=== PATIENT | male | born 1980 | race Caucasian/White ===

== ENCOUNTER 2021-01-24 10:22 | Inpatient (IN) | payer MEDICAID, SELFPAY ==
[2021-01-24] VITALS (19 sets, daily range): BP systolic 101–155; BP diastolic 57–107; PULSE 81–103; RESP 12–20; TEMP 36.1–37.2; O2SAT 94–100
--- NOTE | ~2021-01-24 | CT_ITS ---
EXAMINATION: CT pelvis w con DATE: 01/24/2021 12:36 INDICATION: Abscess with swelling and erythema and open wound at the groin. TECHNIQUE: Computed tomography (CT) of the pelvis was performed with 100 mL Omnipaque-350 intravenous contrast. Automated exposure control and iterative reconstruction technique were employed. The dose -length product was 919.39 mGy-cm. COMPARISON: None FINDINGS: Skin thickening and prominent subcutaneous edema in the bilateral inguinal regions and inte rvening lower anterior pelvic wall extending across the base of the penis consistent with cellulitis. No associated soft tissue gas or discrete fluid collection to suggest abscess. 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 Multiple surgical clips about the tip the cecum likely related to prior ap pendectomy. There are a few diverticula along the mid colon without adjacent inflammatory change to s uggest diverticulitis. Remainder of the visualized bowels are unremarkable. Bladder and prostate are unremarkable. No free intraperitoneal gas or fluid in the pelvis or visualized lower abdomen. Very mi ld lower lumbar spondylosis. IMPRESSION: 1. Cellulitis without soft tissue gas or abscess extending from the left right inguinal regions acros s the anterior lower pelvic wall. Reviewed, dictated and finalized at location A. IMPRESSION: 1. Cellulitis without soft tissue gas or abscess extending from the left right inguinal regions across the anterior lower pelvic wall.
--- NOTE | 2021-01-24 11:11 | ED.GENADULT ---
HPI - General Adult General Chief complaint: Skin/Abscess/Foreign Body Stated complaint: abd abscess from [facility] Time Seen by Provider: 01/24/21 10:41 Source: patient Mode of arrival: ambulatory Limitations: no limitations History of Present Illness HPI narrative: Patient is a 40-year-old male who presents to emergency department for evaluation of infection in the suprapubic region patient had shaved this area several days ago began to have irritation developed redness and swelling went to urgent care was placed on antibiotics return today with worsening condition was referred to the emergency department. On arrival patient with large confluent tender swollen fluctuant area across the suprapubic region with 2 openings 1 on each side of the groin. Patient notes that there is purulent drainage from these lesions. Patient is now developing redness around into the hips and abdomen. Patient notes moderate to severe pain worse with activity and movement. Patient denies fever vomiting or immunocompromise. Patient notes history of prior staph infections Related Data Home Medications Medication Instructions Recorded Confirmed No Home Medications 01/24/21 01/24/21 Allergies Allergy/AdvReac Type Severity Reaction Status Date / Time vancomycin Allergy Unknown Itching Verified 01/24/21 10:51 MYCINS Allergy Unknown Itching Uncoded 01/24/21 10:51 Review of Systems Review of Systems: All systems reviewed & are unremarkable except as noted in HPI and below PMFSH Social History Social History (Updated 01/24/21 @ 11:13 by Edmond Carlos PA-C) Smoking status: Never smoker Gender identity (if verbalized by the patient): Male Exam Narrative: Exam Narrative: GENERAL: Well-appearing, well-nourished, and in no acute distress. HEAD: Normocephalic, atraumatic. EYES: PERRLA and EOMI. ENT: Nares clear, no rhinorrhea or epistaxis. Mucous membranes moist. CHEST: Clear to auscultation. No respiratory distress. No wheezes rales or rhonchi HEART: Regular rate and rhythm. No murmur heard. Normal peripheral pulses. ABDOMEN: Soft, nontender, nondistended, EXTREMITIES: Normal range of motion. No edema. SKIN: Warm, dry, no rash. Patient with red tender swollen fluctuant lesion across the suprapubic area with cellulitis extending into the lower abdomen and thigh bilaterallys. There are 2 draining lesion one on the side of the suprapubic lesion draining purulence raising concern for a large confluent abscess or separate abscesses NEURO: No focal deficits. Alert and oriented x3. Cranial nerves II through XII grossly intact PSYCH: Normal mood and affect. Course Course Emergency Course: Patient presented with cellulitis abscess surgeon saw the patient in the emergency department and will take him to the operative suite for I&D patient was hydrated and given antibiotics in the emergency department Consultations Consultation #1: Discussed case with Dr. Valencia the surgeon who will see the patient in the emergency department Date: 01/24/21 Vital Signs Vital signs: Vital Signs Temperature 97.3 F L 01/24/21 10:27 Pulse Rate 103 H 01/24/21 10:27 Respiratory Rate 19 01/24/21 10:27 Blood Pressure 142/91 H 01/24/21 10:27 Pulse Oximetry 100 01/24/21 10:27 Temperature 98.1 F 01/24/21 10:40 Pulse Rate 98 01/24/21 10:40 Respiratory Rate 18 01/24/21 10:40 Blood Pressure 142/91 H 01/24/21 10:27 Pulse Oximetry 100 01/24/21 10:40 Medical Decision Making MDM Narrative Medical decision making narrative: Patient hemodynamically stable in the room in no distress IV antibiotics initiated fluids initiated patient will go to surgery at this time for I&D of his abscess cellulitis Vital Signs Vital Signs: Vital Signs Temperature 97.3 F L 01/24/21 10:27 Pulse Rate 103 H 01/24/21 10:27 Respiratory Rate 19 01/24/21 10:27 Blood Pressure 142/91 H 01/24/21 10:27 Pulse Oximetry 100 01/24/21 10:27 Temperature 98.1 F
[2021-01-24] MEDS: MORPHINE SULFATE (*CRX) 4 MG/ML INJ IV PUSH (11:36)
[2021-01-24] MEDS: SODIUM CHLORIDE 0.9% IV 3,100 ML/1,000 ML BAG 999 ML IV CONT (11:39)
[2021-01-24 11:59] LABS: Hematocrit 43.6 % (42.0-52.0); Hemoglobin 14.9 g/dL (14.0-18.0); Mean Corpuscular HGB Conc 34.2 g/dl (32-36); Mean Corpuscular Hemoglobin 31.7 pg (26-34); Mean Corpuscular Volume 92.8 fl (80-100); Mean Platelet Volume 8.8 fl (7.4-10.4); Platelet Count Result 283 k/mm3 (150-375); Red Cell Distribution Width 11.7 % (11.5-14.5); White Blood Count 17.1 K/mm3 (4.5-10.0)
[2021-01-24 12:07] LABS: Lymphocytes Absolute Manual 0.85 K/mm3 (1.1-4.5); Monocytes Absolute Manual 2.05 K/mm3 (0.1-0.90); Monocytes Percent Manual 12 % (3-9); Neutrophils Percent Manual 83 % (46-73); Platelet Estimate Adequate (Adequate); Total Cells Counted 100
[2021-01-24 12:08] LABS: Prothrombin Time 13.3 Seconds (11.1-14.7)
[2021-01-24 12:09] LABS: Partial Thromboplastin Time 33.3 SECONDS (22.3-36.8)
[2021-01-24 12:10] LABS: Lactic Acid Reflex 1.3 mmol/L (0.7-2.1)
[2021-01-24] MEDS: CLINDAMYCIN 900 MG/D5W 50 ML 900 MG/50 ML PIGGYBACK 50 MG IVPB (12:11)
[2021-01-24 12:14] LABS: Alanine Aminotransferase 21 U/L (4-50); Albumin Level 4.6 g/dL (3.5-5.1); Alkaline Phosphatase 88 U/L (38-126); Anion Gap 6 mmol/L (8-16); Aspartate Amino Transferase 27 U/L (17-59); Bilirubin,Total 0.7 mg/dL (0.2-1.3); Blood Urea Nitrogen 13 mg/dL (9-20); Calcium 9.4 mg/dL (8.4-10.2); Carbon Dioxide 30 mmol/L (22-30); Chloride 101 mmol/L (98-107); Estimated CRCL calculation 118 ml/min; Estimated Glomerular Filt Rate > 60; Glucose 101 mg/dL (75-110); Potassium 4.1 mmol/L (3.4-5.0); Sodium 137 mmol/L (137-145)
--- NOTE | 2021-01-24 12:20 | PM.IMHP ---
H&P: HPI History of Present Illness Date/Time: 01/24/21 12:20 Pt is a 40 y/o M presenting c worsening pubic pain, swelling, redness, drainage over last wk. Pt reports he shaved the area last Sunday and area has become progressively worse. Pt seen over the weekend in urgent care and started on abx. Pt reports abx have not seemed to help and now there are 2 areas that have opened up and are draining purulent fluid. Pt reports low grade fevers and chills at home. Pt also reports decreased appetitie. Pt reports he has h/o staff infection in his lower extremity. Chief Complaint: pubic abscess, cellulitis Review of Systems Constitutional: Constitutional: Denies anorexia, Reports body ache(s), Reports chills, Reports fatigue, Reports fever(s), Denies headache(s), Reports lethargy, Reports malaise, Denies night sweats, Reports poor appetite, Reports weakness, Denies weight gain and Denies weight loss Eyes: Eyes: Reports no additional eye complaints ENT: Reports system reviewed and no additional complaints, except as documented Cardiovascular: Cardiovascular: Reports no additional cardiovascular complaints Respiratory: Respiratory: Reports no additional respiratory complaints Gastrointestinal: Gastrointestinal: Reports no additional gastrointestinal complaints Genitourinary: Genitourinary: Reports as per HPI and Reports scrotal swelling Musculoskeletal: Musculoskeletal: Reports no additional musculoskeletal complaints Integumentary/Breasts: Skin/Breast: Reports system reviewed and no additional complaints, except as docu and Reports as per HPI Neurologic: Reports system reviewed and no additional complaints, except as documented Psychiatric: Psychiatric: Reports no additional psychiatric complaints Endocrine: Endocrine: Reports no additional endocrine complaints Hematologic/Lymphatic: Hematologic/Lymphatic: Reports no additional hematologic/lymphatic complaints Allergic/Immunologic: Allergic/Immunologic: Reports no additional allergic/immunologic complaints [facility] Social History Social History (Updated 01/24/21 @ 11:13 by Edmond Carlos PA-C) Smoking status: Never smoker Gender identity (if verbalized by the patient): Male Comments PMH - staph infection of lower extremity PSxH - RIH repair as child FH - pt denies any h/o skin cancers, skin disorders Meds Home Medications and Allergies Home Medications Medication Instructions Recorded Confirmed Type No Home Medications 01/24/21 01/24/21 History Allergies Allergy/AdvReac Type Severity Reaction Status Date / Time vancomycin Allergy Unknown Itching Verified 01/24/21 10:51 MYCINS Allergy Unknown Itching Uncoded 01/24/21 10:51 Vital Signs Vital Signs - 24 hr 01/24/21 10:27 01/24/21 10:40 Temperature 36.3 C L 36.7 C Pulse Rate 103 H 98 Respiratory Rate 19 18 Blood Pressure 142/91 H Pulse Oximetry 100 100 Exam Const: General: cooperative, healthy appearing, well developed, alert, awake, Physically active and acute distress mild Nutritional Appearance: average body habitus Orientation/consciousness: patient oriented x3 Limitations: no limitations HENMT: Head: normal to inspection, normocephalic and atraumatic Ears: hearing grossly normal bilaterally General nose exam: Normal external nose present Face and sinus: normal facial exam Mouth: Yes Normal oral and palatal mucosa present and Yes moist mucous membranes Throat: posterior oropharynx normal Eyes: General: appearance normal, both eyes and all related structures Pupils: Equal, round and reactive pupils present EOM: EOMs intact bilaterally Neck: Neck: normal visual inspection, full ROM and no lymphadenopathy Chest: Chest palpation & inspection: normal inspection of the chest Resp: Effort & Inspection: normal respiratory effort and able to speak in complete sentences Auscultation: clear to auscultation bilaterally Cardio: Jugular venous distension: no JVD Rate: regular rate
[2021-01-24 12:25] LABS: CRP 15.3 mg/dL (<1.0)
--- NOTE | 2021-01-24 13:26 | WPDANESEPPF ---
Anes - Initial Pre Proc Eval Procedure: Operation Date: 01/24/21 14:00 Proposed Procedures p Complex Incision And Drainage Of Pubic Abscess - Elli Valencia MD Date/Time: 01/24/21 13:26 Surgeon: Elli Valencia MD Pre Op Diagnosis: abd abscess from [facility] Patient Data Age: 40 Gender: M Height: 6 ft 4 in Weight: 102 kg Last Vital Signs Temp 37.2 C 01/24/21 13:01 Pulse 103 H 01/24/21 13:01 Resp 16 01/24/21 13:01 BP 131/81 01/24/21 13:01 Pulse Ox 98 01/24/21 13:01 Allergies Allergy/AdvReac Type Severity Reaction Status Date / Time vancomycin Allergy Unknown Itching Verified 01/24/21 10:51 MYCINS Allergy Unknown Itching Uncoded 01/24/21 10:51 Home Medications Medication Instructions Recorded Confirmed Type No Home Medications 01/24/21 01/24/21 History Laboratory Tests 01/24/21 01/24/21 01/24/21 11:43 11:43 11:43 WBC 17.1 K/mm3 H K/mm3 (4.5-10.0) RBC 4.70 M/mm3 M/mm3 (4.6-6.20) Hgb 14.9 g/dL g/dL (14.0-18.0) Hct 43.6 % % (42.0-52.0) MCV 92.8 fl fl (80-100) MCH 31.7 pg pg (26-34) MCHC 34.2 g/dl g/dl (32-36) RDW 11.7 % % (11.5-14.5) Plt Count 283 k/mm3 k/mm3 (150-375) MPV 8.8 fl fl (7.4-10.4) Immature Gran % (Auto) Not Reportable Neut % (Auto) Not Reportable Lymph % (Auto) Not Reportable [place] % (Auto) Not Reportable Eos % (Auto) Not Reportable Baso % (Auto) Not Reportable Lymph # (Auto) Not Reportable [place] # (Auto) Not Reportable Eos # (Auto) Not Reportable Baso # (Auto) Not Reportable Abs Immat Gran (auto) Not Reportable Absolute Neuts (auto) Not Reportable Absolute Nucleated RBC Not Reportable Total Counted 100 Neutrophils % (Manual) 83 % H % (46-73) Lymphocytes % (Manual) 5.0 % L % (18-44) Monocytes % (Manual) 12 % H % (3-9) Nucleated RBC % Not Reportable Abs Lymphs (Manual) 0.85 K/mm3 L K/mm3 (1.1-4.5) Abs Monocytes (Manual) 2.05 K/mm3 H K/mm3 (0.1-0.90) Platelet Estimate Adequate (Adequate) PT 13.3 Seconds Seconds (11.1-14.7) INR 1.0 APTT 33.3 SECONDS SECONDS (22.3-36.8) Sodium 137 mmol/L mmol/L (137-145) Potassium 4.1 mmol/L mmol/L (3.4-5.0) Chloride 101 mmol/L mmol/L (98-107) Carbon Dioxide 30 mmol/L mmol/L (22-30) Anion Gap 6 mmol/L L mmol/L (8-16) BUN 13 mg/dL mg/dL (9-20) Creatinine 0.90 mg/dL mg/dL (0.7-1.3) Estim Creat Clear Calc 118 ml/min ml/min Estimated GFR > 60 (59 - ) Glucose 101 mg/dL mg/dL (75-110) Lactic Acid Calcium 9.4 mg/dL mg/dL (8.4-10.2) Total Bilirubin 0.7 mg/dL mg/dL (0.2-1.3) AST 27 U/L U/L (17-59) ALT 21 U/L U/L (4-50) Alkaline Phosphatase 88 U/L U/L (38-126) C-Reactive Protein 15.3 mg/dL H mg/dL (<1.0) Total Protein 8.0 g/dL g/dL (6.3-8.2) Albumin 4.6 g/dL g/dL (3.5-5.1) 01/24/21 11:43 WBC RBC Hgb Hct MCV MCH MCHC RDW Plt Count MPV Immature Gran % (Auto) Neut % (Auto) Lymph % (Auto) [place] % (Auto) Eos % (Auto) Baso % (Auto) Lymph # (Auto) [place] # (Auto) Eos # (Auto) Baso # (Auto) Abs Immat Gran (auto) Absolute Neuts (auto) Absolute Nucleated RBC Total Counted Neutrophils % (Manual) Lymphocytes % (Manual) Monocytes % (Manual) Nucleated RBC % Abs Lymphs (Manual) Abs Monocytes (Manual) Platelet Estimate PT INR
[2021-01-24] MEDS: LACTATED RINGERS 1,000 ML 30 ML IV CONT (13:38)
--- NOTE | 2021-01-24 13:40 | WPDHPUPDATE1 ---
History and Physical Update Update Date/Time: 01/24/21 13:40 History and Physical has been reviewed, including an updated exam of the patient. There are NO changes in the patient's condition. Risks, benefits, and alternatives have been discussed and questions answered. Patient agrees to proceed with procedure.
[2021-01-24] MEDS: BUPIVACAINE/EPINEPHRINE 0.5% 30 ML VIAL INFILTRATE (14:16)
--- NOTE | 2021-01-24 14:20 | P.OP_ITS ---
Procedure Note - Detailed Date of procedure: 01/24/21 Pre-op diagnosis: abd abscess from [facility] pubic abscess measuring approximately 30 x 12 cm Post-op diagnosis: same Procedure performed: complex incision and drainage pubic abscess Description of procedure: The patient was taken the operating room and placed in the supine position. After adequate induction general anesthesia, the patient was prepped and draped in the normal sterile fashion. A time-out was then done to verify the patient's identity, as well as the procedure being performed. I began by localizing the most fluctuant areas of this abscess. There was 2 openings that were draining purulence fluid. I then opened up both these areas. This was noted to extend through the dermis into the subcutaneous tissue. There was noted to be some fat necrosis as well as a moderate amount of purulence. I was able to bluntly dissect in open these cavities completely up. These were noted to connect. The size of the cavity was noted to be approxi mately 30 x 12 cm. The depth was into the subcutaneous tissue at approximately 4 cm. Once I had this completely open and drained, I copiously irrigated out the cavities. I then packed both areas with 1 in iodoform to keep this area open and draining. Sterile dressing was then placed. The patient tolerated the procedure well and was extubated in the operating room postoperatively. He will be sent to the recovery room in stable condition. Anesthesia: GLMA Surgeon: Elli Valencia MD Estimated blood loss (mL): 10 Drains: No Packing: Yes Pathology: none sent Complications: No immediate complications Condition: stable Disposition: PACU Findings: 30 x 12 cm pubic abscess
[2021-01-24] MEDS: fentaNYL CITRATE INJ (*CRX) 100 MCG/2 ML VIAL 25 MCG IV PUSH ×8 (14:47→15:08)
--- NOTE | 2021-01-24 15:35 | ADMGEN ---
This patient, Russ Llamas, was admitted to [facility] Surg Room 302-01. Patient/family oriented to hospital policies and general routines including ID bracelet, bed and alarms, visiting hours, pain management, procedures, bathroom and other care routines, personal items, smoking policy, room service/diet, and visiting hours. Information on how to activate the Rapid Response Team has been discussed. Patient/Family are encouraged to report perceived risks to care and to ask questions if they do not understand what they are told or what they should do.
[2021-01-24] MEDS: HYDROcodone/acetaminophen (*CRX) 5-325 MG TABLET 1 TAB PO ×2 (15:54→19:49)
[2021-01-24] MEDS: SODIUM CHLORIDE 0.9% IV 1,000 ML 100 ML IV CONT (15:55)
[2021-01-24] MEDS: DOCUSATE SODIUM 100 MG CAPSULE PO (17:06)
[2021-01-25] VITALS: BP 138/76; PULSE 97; RESP 16; TEMP 36.7; O2SAT 97
[2021-01-25] MEDS: SODIUM CHLORIDE 0.9% IV 1,000 ML 100 ML IV CONT (00:46)
[2021-01-25] MEDS: HYDROcodone/acetaminophen (*CRX) 5-325 MG TABLET 1 TAB PO ×2 (02:04→08:20)
[2021-01-25 04:00] VITALS: BP 125/66; PULSE 92; RESP 16; TEMP 36.6; O2SAT 96
[2021-01-25 06:11] LABS: Basophils Percent Auto 0.2 % (0.2-1.2); Hematocrit 35.3 % (42.0-52.0); Hemoglobin 11.8 g/dL (14.0-18.0); Immature Granulocyte Absolute 0.12 K/mm3 (0.00-0.031); Immature Granulocyte Percent A 0.7 % (0-0.5); Lymphocytes Absolute Auto 0.84 K/mm3 (0.9-3.2); Lymphocytes Percent Auto 5.2 % (18.3-44.2); Mean Corpuscular HGB Conc 33.4 g/dl (32-36); Mean Corpuscular Hemoglobin 31.1 pg (26-34); Mean Corpuscular Volume 93.1 fl (80-100); Monocytes Absolute Auto 1.3 K/mm3 (0.1-0.6); Monocytes Percent Auto 8.1 % (2.6-8.5); Neutrophils Absolute Auto 13.9 K/mm3 (1.3-6.7); Neutrophils Percent Auto 85.8 % (45.5-73.1); Platelet Count Result 320 k/mm3 (150-375); Red Blood Count 3.79 M/mm3 (4.6-6.20); Red Cell Distribution Width 11.8 % (11.5-14.5); White Blood Count 16.2 K/mm3 (4.5-10.0)
[2021-01-25 06:24] LABS: Anion Gap 8 mmol/L (8-16); Blood Urea Nitrogen 11 mg/dL (9-20); Calcium 8.4 mg/dL (8.4-10.2); Carbon Dioxide 28 mmol/L (22-30); Chloride 103 mmol/L (98-107); Estimated CRCL calculation 118 ml/min; Estimated Glomerular Filt Rate > 60; Glucose 162 mg/dL (75-110); Potassium 4.4 mmol/L (3.4-5.0); Sodium 139 mmol/L (137-145)
[2021-01-25 08:00] VITALS: BP 144/69; PULSE 96; RESP 20; TEMP 36.6; O2SAT 96
[2021-01-25] MEDS: DOCUSATE SODIUM 100 MG CAPSULE PO (08:21)
--- NOTE | 2021-01-25 09:36 | PM.PNGS ---
Progress Note: A&P Assessment and Plan (1) Abscess of skin or subcutaneous tissue: Code(s): L02.91 - Cutaneous abscess, unspecified Status: Acute Assessment and Plan: POD#1 I&D pubic abscess and improving. Pain uncontrolled through the night. Required IV analgesics for dressing change. WBC trending down and he is afebrile. Continue IV abx. Will continue dressing changes daily and as needed with gauze/ABD pad and tape. May discharge later today if pain has improved, otherwise will reassess tomorrow. (2) Cellulitis: Code(s): L03.90 - Cellulitis, unspecified Status: Acute Assessment and Plan: Improving. See plan above. Additional Plan Discussed the plan of care with Dr. Valencia Subjective Subjective Date/Time Seen: 01/25/21 09:36 Post Op day: 1 (I&D complex pubic abscess) Patient reports: still having pain, voiding w/o difficulty and afebrile Interval history: Patient reports having pain throughout the night and not being able to sleep. He has changed the overlying gauze dressing to his pubic abscess this morning, but packing still has not been changed since surgery. No other complaints. Reports swelling has improved. Review of Systems Review of Systems: All systems reviewed & are unremarkable except as noted in HPI and below Exam Const: General: alert and awake Orientation/consciousness: patient oriented x3 Skin: Other: Gauze dressing removed, pubic abscess with two open incisions that are both packed with 1 iodoform gauze. Removed packing, no purulent drainage noted. Induration and erythema improved. Neuro: General: patient oriented x3 Psych: Mental Status: mental status grossly normal Attitude: cooperative Insight: Good insight present (Psych) Judgement: Good judgement present (Psych) Objective Data Vital Signs Vital Signs: Vital Signs - 24 hr 01/24/21 10:27 01/24/21 10:40 01/24/21 10:49 Temperature 97.3 F L 98.1 F Pulse Rate 103 H 98 Respiratory Rate 19 18 Blood Pressure 142/91 H 153/92 H Pulse Oximetry 100 100 99 01/24/21 11:01 01/24/21 11:34 01/24/21 11:38 Temperature Pulse Rate Respiratory Rate Blood Pressure 150/76 H 123/107 H 141/81 H Pulse Oximetry 100 100 100 01/24/21 11:46 01/24/21 12:01 01/24/21 13:01 Temperature 98.9 F Pulse Rate 103 H Respiratory Rate 16 Blood Pressure 135/77 143/85 H 131/81 Pulse Oximetry 97 94 98 01/24/21 14:18 01/24/21 14:30 01/24/21 14:45 Temperature 96.9 F L Pulse Rate 82 88 87 Respiratory Rate 16 12 20 Blood Pressure 101/63 118/57 L 118/60 Pulse Oximetry 97 100 97 01/24/21 15:00 01/24/21 15:15 01/24/21 15:30 Temperature 97.3 F L Pulse Rate 81 91 94 Respiratory Rate 20 15 16 Blood Pressure 127/78 120/67 146/62 H Pulse Oximetry 99 98 99 01/24/21 15:45 01/24/21 16:00 01/24/21 19:52 Temperature 97.3 F L 97.2 F L Pulse Rate 89 92 92 Respiratory Rate 16 16 16 Blood Pressure 137/77 155/74 H Pulse Oximetry 100 97 97 01/24/21 20:00 01/25/21 00:00 01/25/21 04:00 Temperature 97.5 F L 98.1 F 97.9 F Pulse Rate 91 97 92 Respiratory Rate 16 16 16 Blood Pressure 146/73 H 138/76 125/66 Pulse Oximetry 98 97 96 01/25/21 08:00 Temperature 97.9 F Pulse Rate 96 Respiratory Rate 20 Blood Pressure 144/69 H Pulse Oximetry 96 Intake/Output Intake/Output: Intake & Output 01/22/21 01/23/21 01/24/21 01/25/21 23:59 23:59 23:59 23:59 Intake Total 1610 3290 Balance 1610 3290 Meds/Results Medications: Active Medications Generic Name Dose Route Start Last Admin Trade Name Freq PRN Reason Stop Dose Admin Hydrocodone Bitart/Acetaminophen 1 tab 01/24/21 14:14 01/25/21 08:20 Hydrocodone/Acetaminophen (*Crx) 5-325 Mg Tablet PO 1 tab Q4H PRN Administration Moderate Pain (4-6) Al Hydrox/Mg Hydrox/Simethicone 30 ml 01/24/21 14:14 Mag Hydrox/Al Hydrox/Simeth 30 Ml Udc PO QID PRN Dyspepsia Docusate Sodium 100 mg 01/24/21 17:00 01/25/21 08:21
[2021-01-25] MEDS: MORPHINE SULFATE (*CRX) 4 MG/ML INJ IV PUSH (10:30)
[2021-01-25 12:04] VITALS: BP 147/77; PULSE 103; RESP 20; TEMP 36.3; O2SAT 96
--- NOTE | 2021-01-25 14:30 | P.PNAN_ITS ---
Anes - Prog Note Post-Op Date/Time: 01/25/21 14:30 Cardiovascular status: normal Respiratory status: normal Airway patency: baseline Mental status: baseline Post-Op hydration status: normal Vital Signs: Last Vital Signs Temp 36.3 C L 01/25/21 12:04 Pulse 103 H 01/25/21 12:04 Resp 20 01/25/21 12:04 BP 147/77 H 01/25/21 12:04 Pulse Ox 96 01/25/21 12:04 Pain Score (VAS): 0 I/O: Intake & Output 01/24/21 01/25/21 01/25/21 23:59 07:59 15:59 Intake Total 1510 3100 240 Balance 1510 3100 240 Laboratory Tests 01/25/21 05:25 01/25/21 05:25 01/25/21 01/25/21 05:25 05:25 WBC 16.2 H RBC 3.79 L Hgb 11.8 L D Hct 35.3 L MCV 93.1 MCH 31.1 MCHC 33.4 RDW 11.8 Plt Count 320 MPV 9.0 Immature Gran % (Auto) 0.7 H Neut % (Auto) 85.8 H Lymph % (Auto) 5.2 L [place] % (Auto) 8.1 Eos % (Auto) 0.0 Baso % (Auto) 0.2 Lymph # (Auto) 0.84 L [place] # (Auto) 1.3 H Eos # (Auto) 0.0 Baso # (Auto) 0.0 Abs Immat Gran (auto) 0.12 H Absolute Neuts (auto) 13.9 H Absolute Nucleated RBC 0.0 Nucleated RBC % 0.0 Sodium 139 Potassium 4.4 Chloride 103 Carbon Dioxide 28 Anion Gap 8 BUN 11 Creatinine 0.90 Estim Creat Clear Calc 118 Estimated GFR > 60 Glucose 162 H Calcium 8.4 Microbiology 01/24/21 11:43 Blood Blood Culture - Preliminary 01/24/21 11:44 Blood Blood Culture - Preliminary 01/24/21 11:44 Abscess Anaerobic Culture - Preliminary Post-procedural complaints: none Patient Feedback: Patient satisfied with anesthetic care.
--- NOTE | 2021-01-25 16:34 | PM.DS ---
DS: Admitting Diagnosis Admitting Diagnosis Admitting Diagnosis: Pubic abscess Cellulitis DS: Discharge Diagnosis Discharge Diagnosis (1) Abscess of skin or subcutaneous tissue: Code(s): L02.91 - Cutaneous abscess, unspecified Status: Acute (2) Cellulitis: Code(s): L03.90 - Cellulitis, unspecified Status: Acute DS: Summary Hospital Course Reason for hospitalization: Pt is a 40 y/o M who presented to the ER with complaints of worsening pubic pain, swelling, redness, drainage over a week. Prior to symptoms, he had shaved the pubic area and symptoms worsened after this. He was seen in an urgent care and started on oral antibiotics without improvement, then came to he ER. Evaluation in the ER showed a pubic abscess with two open draining lesions. Our service was contacted and he was admitted in this setting for surgical evaluation. Hospital Course: The patient was taken for an I&D of complex pubic abscess on 01/24/21. The two openings of the pubic abscess were found to connect and the entire area was copiously cleaned out and drained. The wound was then packed with 1' iodoform gauze and the patient was kept overnight on IV antibiotics. Wound cultures were taken in the ER prior to surgery and pending on discharge. The patient evaluated POD#1 and showed significant improvement in overall surrounding cellulitis and induration. Packing was removed and the abscess appeared to be adequately drained with no purulent drainage at the time of exam. He was afebrile and WBC trending down. Dr. Valencia also saw the patient and was okay with discharge if pain was better controlled. Later in the day, his pain improved and he was stable for discharge. He will be transitioned to a course of oral antibiotics and was instructed on proper wound care. Will plan follow-up with Dr. Valencia in 1-2 weeks as an outpatient. Discussed with the patient reasons to return sooner. Status at Discharge Functional status at discharge: independent ambulation Overall status at discharge: patient is progressing back to baseline Time Spent with Patient Time attestation: Total time spent providing and/or coordinating discharge services: Time spent: Greater than 30 minutes DS: Data Data Completed and Pending Labs on day of discharge: Labs from last 24 hours 01/25/21 01/25/21 05:25 05:25 WBC 16.2 H RBC 3.79 L Hgb 11.8 L D Hct 35.3 L MCV 93.1 MCH 31.1 MCHC 33.4 RDW 11.8 Plt Count 320 MPV 9.0 Immature Gran % (Auto) 0.7 H Neut % (Auto) 85.8 H Lymph % (Auto) 5.2 L [place] % (Auto) 8.1 Eos % (Auto) 0.0 Baso % (Auto) 0.2 Lymph # (Auto) 0.84 L [place] # (Auto) 1.3 H Eos # (Auto) 0.0 Baso # (Auto) 0.0 Abs Immat Gran (auto) 0.12 H Absolute Neuts (auto) 13.9 H Absolute Nucleated RBC 0.0 Nucleated RBC % 0.0 Sodium 139 Potassium 4.4 Chloride 103 Carbon Dioxide 28 Anion Gap 8 BUN 11 Creatinine 0.90 Estim Creat Clear Calc 118 Estimated GFR > 60 Glucose 162 H Calcium 8.4 Preliminary micro results at discharge 01/24/21 11:43 Blood Culture - Preliminary Blood 01/24/21 11:44 Blood Culture - Preliminary Blood 01/24/21 11:44 Anaerobic Culture - Preliminary Abscess Discharge Plan Discharge Attending physician on discharge: Elli Valencia Consulting providers: Jermaine Lewis Discharging Clinician: Maggie Bender Anticipated Discharge Date/Time: 01/25/21 17:00 Patient Disposition: Home, Self-Care Activity: may shower and other - see discharge instructions Diet: regular Wound Care Instructions: other - see discharge instructions Discharge Instructions: WOUND CARE: Apply gauze dressing over pubic incisions once daily and change gauze as needed when saturated. Wash over incisions with mild soap and water daily prior to dressing change. 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 I will send you with a few tablets of the more severe pa
--- NOTE | 2021-01-25 17:04 | PC.NURSE ---
Patient refuses flu shot on discharge.
== END 2021-01-25 17:00 | disposition home or self-care (01) | DRG 364 ==
LOC: ANHED 11:57 → ANHSURGERY 12:17 → ANH3MEDSUR 15:27
PROVIDERS: Emergency Medicine Emergency Medical Services; Admitting Provider Surgery; Emergency Provider Emergency Medicine; Visit Provider Nurse Practitioner Family
PROC: 0J9C0ZZ Drainage of Pelvic Region Subcutaneous Tissue and Fascia, Open Approach (ICD-10-PCS; principal; 2021-01-24 14:00)
DX: L02.214 Cutaneous abscess of groin (principal); L03.90 Cellulitis, unspecified
CPT/HCPCS: 36415; 72193; 80048; 80053; 83605; 85025; 85610; 85730; 86140; 87040; 87070; 87075; 87147; 87186; 87205; 96361; 96374; 96375; 99285; A9270; G0378; G0379; J0131; J1100; J2250; J2270; J2405; J2543; J2704; J3010; J7030; J7120; Q9967

== ENCOUNTER 2021-05-11 13:15 | Emergency (ER) | payer BC, SELFPAY ==
[2021-05-11 13:25] VITALS: BP 163/82; PULSE 99; RESP 16; TEMP 37.2; O2SAT 100
--- NOTE | 2021-05-11 13:30 | ED.GENADULT ---
HPI - General Adult General Chief complaint: Upper Respiratory Infection Stated complaint: congestion Time Seen by Provider: 05/11/21 13:30 Source: patient and RN notes reviewed Mode of arrival: ambulatory Limitations: no limitations History of Present Illness HPI narrative: 40-year-old male presents with complaints of upper respiratory infection, sneezing, some facial congestion, facial pressure, and intermittent headache (not the worst of his life) for the past 7 days. Russ reports increasing symptoms today. Benadryl, last taken on 05/10/2021 without relief. No facial swelling. Intermittent cough without chest congestion. Nasal congestion and rhinorrhea. No high fevers, drooling, neck or throat swelling. No voice change. No nausea, vomiting, or abdominal pain. Tolerating liquids well. Denies dyspnea, difficulty swallowing, jaw pain, dental pain, foreign body sensation, and rash. No chest pain or shortness of breath. The patient reports he has not been diagnosed with COVID-19. The patient reports he is not waiting for the results of a COVID-19 lab test. The patient reports he does not have chills, weakness, or fatigue. The patient reports he does not have a worsening cough. The patient reports he does not have any sore throat, loss of taste or smell, and diarrhea. Denies recent traveling. Denies concerns for COVID-19 or exposures. At this time, the patient is not suspected of having COVID-19. Some parts of this dictation were generated by voice recognition software and may contain typographical and/or grammatical inaccuracies. Related Data Home Medications Medication Instructions Recorded Confirmed No Home Medications 05/11/21 05/11/21 Allergies Allergy/AdvReac Type Severity Reaction Status Date / Time vancomycin Allergy Unknown Itching Verified 02/08/21 13:27 MYCINS Allergy Unknown Itching Uncoded 01/24/21 10:51 Review of Systems Review of Systems: Narrative: CONSTITUTIONAL: Denies fever, chills, sweats. EYES: Denies visual changes, redness, discharge. ENT: Complains of rhinorrhea, congestion, facial congestion and pressure. Denies otalgia, sore throat. CARDIOVASCULAR: Denies chest pain, palpitations, edema. RESPIRATORY: Denies dyspnea, wheezing. Complains of intermittent cough. GASTROINTESTINAL: Denies abdominal pain, nausea, vomiting, diarrhea. SKIN: Denies rash or itching. MUSCULOSKELETAL: Denies acute back pain, joint pain, or myalgia. NEUROLOGIC: Denies numbness or focal weakness. Complains of intermittent MARTINEZ. PSYCHIATRIC: Denies anxiety or depression. All other systems reviewed & are unremarkable except as noted in HPI and below. FORMERLY [facility] Past Medical History Medical History (Updated 05/12/21 @ 00:00 by Sacha Hidalgo) Abscess of skin or subcutaneous tissue Allergies Cellulitis Surgical History Surgical History H/O hernia repair History of appendectomy History of incision and drainage complex incision and drainage pubic abscess History of nasal surgery Family History Family History (Updated 05/11/21 @ 13:43 by KUNAL Flores) Father , old age No significant family history Mother Alive and well Social History Social History (Updated 05/11/21 @ 13:44 by KUNAL Flores) Smoking status: Former smoker Tobacco type: cigarettes Second hand tobacco smoke exposure: No Alcohol intake: never Substance use: never Substance use type: does not use Living arrangements: with family Occupation/Education: occupation Gender identity (if verbalized by the patient): Male Sexual Orientation (if Verbalized by the Patient): Straight or Heterosexual Spiritual care concerns: No Comments At time of signature, agree with the nurse past medical, surgical, social, and family history. There is no relevant family history pertinent to the presenting complaint. Exam Narrative: Exam Narrativ
[2021-05-11 13:50] VITALS: BP 160/88
== END 2021-05-11 13:50 | disposition home or self-care (01) ==
PROVIDERS: Emergency Provider Nurse Practitioner Family
DX: J01.90 Acute sinusitis, unspecified (principal); Z87.891 Personal history of nicotine dependence
CPT/HCPCS: 99213; G0463

== ENCOUNTER 2021-09-27 08:22 | Emergency (ER) | payer BC, SELFPAY ==
--- NOTE | 2021-09-27 08:36 | ED.URI ---
HPI - URI/Sore Throat General Chief Complaint: Upper Respiratory Infection Stated Complaint: Sore Throat Time Seen by Provider: 09/27/21 08:38 Source: patient and RN notes reviewed Mode of arrival: ambulatory Limitations: no limitations History of Present Illness HPI Narrative: 41-year-old male presents with concern for sore throat. Reports exposure to strep throat, reports his daughter had strep throat last week. He reports rhinorrhea, nasal congestion, sneezing, occasional headache, painful swallowing. He denies body aches, chills, fever, sweats, shortness of breath. Reports taking several [id number] medications without relief. Reports he has not been vaccinated for Covid, has had 2 Covid infections. MD elicited complaint: sore throat Related Data Allergies Allergy/AdvReac Type Severity Reaction Status Date / Time vancomycin Allergy Unknown Itching Verified 09/27/21 08:46 MYCINS Allergy Unknown Itching Uncoded 01/24/21 10:51 Review of Systems Review of Systems: CONSTITUTIONAL: Denies malaise, chills, sweats, or fever. EYES: Denies visual changes, redness, or discharge. ENT: Reports rhinorrhea, congestion, sore throat, sneezing. Denies sinus pain, otalgia CARDIOVASCULAR: Denies chest pain, palpitations, or edema. RESPIRATORY: Denies cough. Denies dyspnea. GASTROINTESTINAL: Denies abdominal pain, nausea, vomiting, diarrhea SKIN: Denies rash or itching. MUSCULOSKELETAL: Denies myalgia. NEUROLOGIC: Reports headache. All systems reviewed & are unremarkable except as noted in HPI and below PMFSH Past Medical History Medical History (Updated 09/27/21 @ 09:02 by Julianne Dexter NP) Abscess of skin or subcutaneous tissue Allergies Cellulitis Surgical History Surgical History H/O hernia repair History of appendectomy History of incision and drainage complex incision and drainage pubic abscess History of nasal surgery Family History Family History (Updated 05/11/21 @ 13:43 by KUNAL Flores) Father , old age No significant family history Mother Alive and well Social History Social History (Updated 05/11/21 @ 13:44 by KUNAL Flores) Smoking status: Former smoker Tobacco type: cigarettes Second hand tobacco smoke exposure: No Alcohol intake: never Substance use: never Substance use type: does not use Gender identity (if verbalized by the patient): Male Sexual Orientation (if Verbalized by the Patient): Straight or Heterosexual Spiritual care concerns: No Comments At time of signature, agree with nursing past medical, surgical, social and family history. There is no relevant family history pertinent to the presenting complaint Exam Narrative: GENERAL: Well-appearing, well-nourished, and in no acute distress. HEAD: Normocephalic EYES: PERRLA, conjunctivae clear ENT: Nares clear, clear discharge. Mucous membranes moist. TM pearly menendez with sharp light reflex bilaterally; no tragal tenderness. Oropharynx erythematous without lesions. Tonsils not enlarged and without exudate, no drooling, no hoarseness, no trismus, uvula midline. NECK: Supple. No lymphadenopathy CHEST: Clear to auscultation, breath sounds equal. No wheezing, rhonchi, rales, or stridor. No respiratory distress, speaks in full sentences. HEART: Regular rate and rhythm. No murmur heard. SKIN: Warm, dry, no rash. NEURO: Alert and oriented x3. PSYCH: Normal mood and affect Course Course Emergency Course: Patient is aware of diagnosis, understands and agrees to treatment plan. Anticipatory guidance given. Patient agrees to follow-up as directed and is aware of reasons to seek care at the emergency department. Portions of this record may have been created with voice recognition software Vital Signs Vital signs: Reviewed. MDM - URI/Sore Throat MDM Narrative Medical decision making narrative: Differential diagnosis considered: Rebol[place] vir
[2021-09-27 08:37] VITALS: BP 138/92; PULSE 81; RESP 16; TEMP 36.2; O2SAT 100
[2021-09-27 08:47] VITALS: BP 138/92; PULSE 81; RESP 16; TEMP 36.2; O2SAT 100
== END 2021-09-27 09:10 | disposition home or self-care (01) ==
PROVIDERS: Emergency Provider Nurse Practitioner
DX: J02.9 Acute pharyngitis, unspecified (principal); Z20.818 Contact with and (suspected) exposure to other bacterial communicable diseases; Z87.891 Personal history of nicotine dependence
CPT/HCPCS: 87081; 87880; 99203; G0463

== ENCOUNTER 2022-03-13 18:30 | Emergency (ER) | payer BC, SELFPAY ==
--- NOTE | ~2022-03-13 | XR_ITS ---
EXAM: XR finger 1st RT min 2V HISTORY: wound to 1st digit on rt hand, checking for f/b COMPARISON: None available FINDINGS: Normal mineralization. No fracture or dislocation. No lytic or blastic lesion. Joint space s maintained. No erosion or periosteal change. Soft tissues within normal limits. IMPRESSION: No acute osseous finding in the right first digit. No radiopaque foreign body. Reviewed, dictated and finalized at location K.
[2022-03-13 18:38] VITALS: BP 149/88; PULSE 91; RESP 16; TEMP 36.7; O2SAT 99
--- NOTE | 2022-03-13 18:43 | ED.SKABFB ---
HPI - Skin/Abscess/Foreign Bdy General Chief complaint: Wound/Laceration Stated complaint: hand wound Time Seen by Provider: 03/13/22 18:43 Source: patient, RN notes reviewed and old records reviewed Mode of arrival: ambulatory Limitations: no limitations History of Present Illness HPI narrative: 41-year-old male presents to the [facility] with a wound to the right base of thumb that is not healing for the last 6 to 8 weeks. States that he got a very large splinter in it. Has been pouring peroxide and picking at it. Area is not healing. No redness in surrounding tissue. Full range of motion. Patient concerned he may still have a foreign body left in it. Patient has been using tweezers, needles, pouring peroxide and removing the scab to make sure there is nothing left within the wound. Related Data Home Medications Medication Instructions Recorded Confirmed cetirizine 10 mg PO DAILY 03/13/22 03/13/22 Allergies Allergy/AdvReac Type Severity Reaction Status Date / Time vancomycin Allergy Unknown Itching Verified 03/13/22 18:32 MYCINS Allergy Unknown Itching Uncoded 03/13/22 18:32 Review of Systems Review of Systems: All systems reviewed & are unremarkable except as noted in HPI and below Constitutional: Constitutional: Reports no additional constitutional complaints, Denies chills and Denies fever(s) Eyes: Eyes: Reports no additional eye complaints ENT: Reports system reviewed and no additional complaints, except as documented Cardiovascular: Cardiovascular: Reports no additional cardiovascular complaints, Denies chest pain and Denies dyspnea Respiratory: Respiratory: Reports no additional respiratory complaints, Denies cough and Denies dyspnea Gastrointestinal: Gastrointestinal: Reports no additional gastrointestinal complaints, Denies abdominal pain, Denies nausea and Denies vomiting Musculoskeletal: Musculoskeletal: Reports no additional musculoskeletal complaints Integumentary/Breasts: Skin/Breast: Reports as per HPI Comments: Nonhealing wound right hand Neurologic: Reports system reviewed and no additional complaints, except as documented Psychiatric: Psychiatric: Reports no additional psychiatric complaints Allergic/Immunologic: Allergic/Immunologic: Reports no additional allergic/immunologic complaints PMFSH Past Medical History Medical History Abscess of skin or subcutaneous tissue Allergies Cellulitis Surgical History Surgical History H/O hernia repair History of appendectomy History of incision and drainage complex incision and drainage pubic abscess History of nasal surgery Family History Family History Father , old age No significant family history Mother Alive and well Social History Social History Smoking status: Former smoker Tobacco type: cigarettes Second hand tobacco smoke exposure: No Alcohol intake: never Substance use: never Substance use type: does not use Gender identity (if verbalized by the patient): Male Sexual Orientation (if Verbalized by the Patient): Straight or Heterosexual Spiritual care concerns: No Comments At the time of my signature, I reviewed and agree with the nursing past medical, surgical, social, and family history. There is no relevant family history pertinent to the patient complaint. Exam Const: General: healthy appearing, no acute distress and alert Nutritional Appearance: well nourished Orientation/consciousness: patient oriented x3 Limitations: no limitations HENMT: Head: normal to inspection Eyes: Conjunctivae: conjunctivae normal Pupils: Equal, round and reactive pupils present Neck: Neck: normal visual inspection, no lymphadenopathy and no meningeal signs Chest: Chest palpation & insp
[2022-03-13] MEDS: LIDOCAINE HCL 1% LOCAL INJ 20 ML VIAL 3 ML INFILTRATE (18:56)
== END 2022-03-13 19:37 | disposition home or self-care (01) ==
PROVIDERS: Emergency Provider Nurse Practitioner
DX: S61.031A Puncture wound without foreign body of right thumb without damage to nail, initial encounter (principal); Z87.891 Personal history of nicotine dependence; W45.8XXA Other foreign body or object entering through skin, initial encounter
CPT/HCPCS: 73140; 99213; G0463

== ENCOUNTER 2022-04-12 09:54 | Emergency (ER) | payer BC, SELFPAY ==
[2022-04-12 09:59] VITALS: BP 139/76; PULSE 84; RESP 16; TEMP 36.6; O2SAT 100
--- NOTE | 2022-04-12 10:15 | ED.URI ---
HPI - URI/Sore Throat General Chief Complaint: Upper Respiratory Infection Stated Complaint: uri Time Seen by Provider: 04/12/22 10:17 Source: patient and RN notes reviewed Mode of arrival: ambulatory Limitations: no limitations History of Present Illness HPI Narrative: 41-year-old male presented for complaint of cough and body aches for about 3 days. Endorses mild sore throat. denies shortness of breath, chest pain, nausea, vomiting, diarrhea, fevers or chills. He has taken Benadryl and TheraFlu for symptoms. Endorses chronic allergies, states sinus pressure and congestion are common, denies any worsening symptoms or epistaxis. Endorses children are sick. He has not been vaccinated for COVID or flu. MD elicited complaint: cough Related Data Allergies Allergy/AdvReac Type Severity Reaction Status Date / Time vancomycin Allergy Unknown Itching Verified 03/13/22 18:32 MYCINS Allergy Unknown Itching Uncoded 03/13/22 18:32 Review of Systems Review of Systems: CONSTITUTIONAL: Endorses malaise EYES: Denies redness, or discharge ENT: Reports rhinorrhea, congestion, sore throat CARDIOVASCULAR: Denies chest pain, palpitations, edema RESPIRATORY: Reports cough, post nasal drainage. Denies dyspnea GASTROINTESTINAL: Denies abdominal pain, nausea, vomiting, diarrhea MUSCULOSKELETAL: Endorses myalgia PMFSH Past Medical History Medical History Abscess of skin or subcutaneous tissue Allergies Cellulitis Surgical History Surgical History H/O hernia repair History of appendectomy History of incision and drainage complex incision and drainage pubic abscess History of nasal surgery Family History Family History Father , old age No significant family history Mother Alive and well Social History Social History Smoking status: Former smoker Tobacco type: cigarettes Second hand tobacco smoke exposure: No Alcohol intake: never Substance use: never Substance use type: does not use Gender identity (if verbalized by the patient): Male Sexual Orientation (if Verbalized by the Patient): Straight or Heterosexual Spiritual care concerns: No Exam Narrative: GENERAL: well-appearing EYES: conjunctivae clear ENT: Mucous membranes moist. TMs erythematous with fluid bilaterally; no tragal tenderness. Oropharynx erythematous without lesions or exudate, no drooling, no hoarseness, no trismus, uvula midline. NECK: Supple. No lymphadenopathy CHEST: Clear to auscultation, breath sounds equal. No wheezing, rhonchi, rales, or stridor. HEART: Regular rate and rhythm. No murmur heard. SKIN: Warm, dry, no rash. NEURO: Alert and oriented x3. Course Course Emergency Course: Patient is aware of diagnosis, understands and agrees to treatment plan. Anticipatory guidance given. Patient agrees to follow-up as directed and is aware of reasons to seek care at the emergency department. Portions of this record may have been created with voice recognition software Level of Care: Express Care Visit Vital Signs Vital signs: Vital Signs Temperature 97.8 F 04/12/22 09:59 Pulse Rate 84 04/12/22 09:59 Respiratory Rate 16 04/12/22 09:59 Blood Pressure 139/76 04/12/22 09:59 Pulse Oximetry 100 04/12/22 09:59 Oxygen Delivery Room Air 04/12/22 09:59 Temperature 97.8 F 04/12/22 09:59 Pulse Rate 84 04/12/22 09:59 Respiratory Rate 16 04/12/22 09:59 Blood Pressure 139/76 04/12/22 09:59 Pulse Oximetry 100 04/12/22 09:59 Oxygen Delivery Room Air 04/12/22 09:59 reviewed MDM - URI/Sore Throat MDM Narrative Medical decision making narrative: covid ,flu negative. Reviewed symptomatic treatments. v/u. Differential Diagnosis Differential diagnosis: Likely up
== END 2022-04-12 10:51 | disposition home or self-care (01) ==
PROVIDERS: Emergency Provider Nurse Practitioner Family
DX: J06.9 Acute upper respiratory infection, unspecified (principal); Z20.822 Contact with and (suspected) exposure to COVID-19; Z87.891 Personal history of nicotine dependence
CPT/HCPCS: 87426; 87804; 99213; C9803; G0463